=== PATIENT | male | born 1960 | race Hispanic/Latino ===

== ENCOUNTER 2022-02-28 09:08 | Outpatient (CLI) | payer MEDICAID ==
--- NOTE | 2022-02-28 11:22 | XRay Report ---
XR knees standing AP Bilateral INDICATION / CLINICAL INFORMATION: Knee pain COMPARISON: None available. FINDINGS: Right knee: Mild osteoarthritis with mild narrowing of the medial compartment with weightbearing and tiny marginal osteophytes. No acute fracture or malalignment. No focal soft tissue abnormality. Left knee: Joint spaces are preserved with weightbearing. No significant arthritis. No acute fracture or malalignment. No focal soft tissue abnormality. IMPRESSION: 1. No acute osseous findings of either knee. 2. Mild right knee osteoarthritis. Signer Name: Chad Ansari MD Signed: 02/28/2022 11:17 AM Workstation Name: [employer][id number]
== END 2022-02-28 09:09 | disposition home or self-care (01) ==
LOC: XRAY 09:08
PROVIDERS: ATTEND Orthopaedic Surgery
DX: M17.11 Unilateral primary osteoarthritis, right knee (principal)
CPT/HCPCS: 73565

== ENCOUNTER 2022-07-10 11:01 | Outpatient (CLI) | payer MEDICAID ==
--- NOTE | 2022-07-10 15:15 | XRay Report ---
RIGHT KNEE 2 VIEW(S) INDICATION / CLINICAL INFORMATION: M25.569 COMPARISON: None available. FINDINGS: BONES / JOINT(S): No acute fracture or subluxation. No significant arthritis. SOFT TISSUES: No significant abnormality. ADDITIONAL FINDINGS: None. IMPRESSION: 1. No acute findings. Signer Name: Nahum Cool MD Signed: 07/10/2022 3:11 PM Workstation Name: [id number]
== END 2022-07-10 11:02 | disposition home or self-care (01) ==
LOC: XRAY 11:01
PROVIDERS: ATTEND Orthopaedic Surgery
DX: M25.561 Pain in right knee (principal)